=== PATIENT | female | born 1985 | race Caucasian/White ===

== ENCOUNTER 2016-11-26 13:31 | Emergency (ER) | payer OTHER ==
[~2016-11-26] VITALS: Ht 170.2 cm; Wt 65.0 kg
[~2016-11-26 13:31] MED LIST: CHOL100010 PO; CODCAP PO; DHA200CA PO; OXYC1SOL5 PO; PREN0.01 PO
[2016-11-26 13:52] VITALS: BP 128/74; PULSE 78; RESP 15; TEMP 98.2; O2SAT 98
[2016-11-26] MEDS ORDERED: AMOX875T2 PO (14:29)
[2016-11-26] MEDS ORDERED: LORA-400 PO (14:29)
--- NOTE | 2016-11-26 14:57 | PD ---
HPI Chief Complaint: Cold / Flu Symptoms Time Seen by Provider: 14:57 Travel History International Travel<30 days: No Contact w/Intl Traveler<30days: No Traveled to known affect area: No History of Present Illness HPI 31-year-old female presents to the emergency department requesting a 'full panel " of labs. She says she's been sick for about 2 weeks and was seen in urgent care on Wednesday and was given a prescription for amoxicillin which she has been taking as prescribed with improvement in symptoms. She called urgent care today because she was concerned of easily bruising and losing 10 pounds over the last month asking for labs and they told her to come to the ER for a "full panel." She denies chest pain, shortness of breath, abdominal pain, nausea, vomiting. Denies fever, chills. Denies lightheadedness, dizziness, headaches. She has a [id number] that she just stopped breast feeding a week ago. She was told that she needs to probably get her thyroid levels checked. Denies allergies. Does not have an established primary care provider. She has no other medical complaints. No other modifying factors or associated signs and symptoms. Allergies-Medications (Allergen,Severity, Reaction): Coded Allergies: No Known Allergies (Unverified , 11/26/16) Reported Meds & Prescriptions Reported Meds & Active Scripts Active Reported Amoxicillin-Clavulanate 875-125 mg Tab 875 Mg PO BID not for use in CrCl <30 mL/minute Claritin-D 24 HR (Loratadine-Pseudoephedrine 24 HR) 10-240 Mg Tab 1 Tab PO DAILY Review of Systems Except as stated in HPI: all other systems reviewed are Neg Physical Exam Narrative GENERAL: Well-nourished, well-developed female patient, in no acute distress; afebrile, nontoxic-appearing SKIN: Warm and dry. No rash. HEAD: Atraumatic. Normocephalic. EYES: Pupils equal and round at 3 mm with brisk reaction. No scleral icterus. No injection or drainage. PERRLA. ENT: Mucosa pink and moist. No erythema or exudates. No uvular edema. No uvular , palatal, or tonsillar deviation. Airway patent. EARS: Bilateral pinnae and external canals appear within normal limits. Bilateral tympanic membranes without erythema, dullness or perforation. NECK: Trachea midline. No lymphadenopathy. CARDIOVASCULAR: Regular rate and rhythm. No murmur appreciated. RESPIRATORY: No accessory muscle use. Clear to auscultation. Breath sounds equal bilaterally. GASTROINTESTINAL: Abdomen soft, non-tender, nondistended. Hepatic and splenic margins not palpable. Bowel sounds are active 4 quadrants. MUSCULOSKELETAL: No obvious deformities. No clubbing. No cyanosis. No edema. . NEUROLOGICAL: Awake and alert. Oriented 3. No obvious cranial nerve deficits. Motor grossly within normal limits. Normal speech. Moves all extremities. 5/5 strength to all extremities. PSYCHIATRIC: Appropriate mood and affect; insight and judgment normal. Data Data Last Documented VS Vital Signs Date Time Temp Pulse Resp B/P Pulse Ox O2 Delivery O2 Flow Rate FiO2 11/26/16 13:52 98.2 78 15 128/74 98 MDM Medical Screen Exam Complete: Yes Emergency Medical Condition: No Differential Diagnosis Medical clearance, sinusitis, influenza Narrative Course 31-year-old female requesting lab work. She was sent by urgent care saying that she needed a "full panel" of labs. Physical exam is unremarkable. The patient is currently taking amoxicillin for cold/flu symptoms 2 weeks. She started the amoxicillin on Wednesday and reports improvement in symptoms. She was complaining of easily bruising and 10 pound weight loss in the last month. She just recently stopped breast-feeding her [id number] infant. She has no emergent medical complaints at this time. Vital signs are stable and the patient is stable for outpatient follow-up and treatment. The patient has no urgent or emergent medical complaints. There is no emergent or urgent medical need at this time. I instructed the patient to follow up with their primary care provider. A medical screening exam was performed: At the time of evaluation the presenting medical condition was determined not to be of an emergent nature. The patient was given the option of receiving additional care, but declined. Patient was given options for additional community resources from which to obtain care. The Patient Has Been advised to seek medical attention for their presenting complaint. The patient has been advised to return to the ER at any time if an emergent condition develops. Primary Impression: Encounter for medical screening examination Condition: Stable Marietta Merrill Nov 26, 2016 14:57
== END 2016-11-26 15:06 | disposition left against medical advice (07) ==
LOC: NETRI 13:31
DX: R63.4 Abnormal weight loss (principal)
CPT/HCPCS: 99281